=== PATIENT | female | born 1950 | race Caucasian/White ===

== ENCOUNTER → 2020-01-11 08:48 | Outpatient (CLI) | payer MEDICARE, OTHER, SELFPAY ==
[2019-12-20 13:14] VITALS: BMI 26.5
--- NOTE | 2020-01-11 08:54 | ECHOD_ITS ---
Reason For Study: ARRHYTHMIA, AO ANEURYSM Procedure This was a 2D Doppler, Color Flow transthoracic echocardiogram. The exam was of adequate technical quality. Exam performed in department. Left Ventricle Normal LV size. Left ventricular systolic function is normal. The estimated ejection fraction is 60 %. No evidence for diastolic dysfunction. No regional wall motion abnormalities noted. Right Ventricle Normal RV size. Normal systolic function. Atria Normal left atrium. Normal right atrium. No doppler evidence for ASD. Mitral Valve There is no mitral annular calcification. Normal mitral valve. Mild (1+) mitral valve insufficiency. Tricuspid Valve Normal tricuspid valve. Trivial tricuspid valve insufficiency. Right ventricular systolic pressure estimated to be 30 mmHg. Aortic Valve Trisinus/trileaflet aortic valve. Normal aortic valve. Trivial aortic valve insufficiency. Pulmonic Valve The pulmonic valve is not well visualized. Trivial pulmonic valve insufficiency. Great Vessels Borderline to mildly enlarged aortic root. Mildly dilated ascending aorta. Pericardium/Pleural No pericardial effusion. MMode/2D Measurements & Calculations LVIDd: 4.8 cm IVSd: 1.0 cm MVA(traced): 13.9 cm2 LVIDs: 3.5 cm LVPWd: 0.89 cm RVDd: 3.7 cm FS: 27.0 % Ao root diam: 4.2 cm LAV(MOD-bp): 51.8 ml LA A4 area: 15.9 cm2 LAV(MOD-bp) Indexed: 25.7 ml/m2 LAV(MOD-sp2): 53.9 ml LAV(MOD-sp4): 45.3 ml LA dimension(2D): 4.0 cm Time Measurements MV dec time: 0.17 sec Doppler Measurements & Calculations MV E max sergey: 90.4 cm/sec Lat Peak E' Sergey: 11.4 cm/sec Med Peak E' Sergey: 8.9 cm/sec MV A max sergey: 69.4 cm/sec E/E' lat: 8.0 E/E' med: 10.2 MV E/A: 1.3 Ao V2 max: 124.1 cm/sec LV V1 max: 111.2 cm/sec PA V2 max: 84.8 cm/sec Ao max P.2 mmHg LV V1 max P.9 mmHg TR max sergey: 257.6 cm/sec TR max P.6 mmHg Interpretation Summary Left ventricular systolic function is normal. The estimated ejection fraction is 60 %. Mild (1+) mitral valve insufficiency. Trivial tricuspid valve insufficiency. Trivial aortic valve insufficiency. Trivial pulmonic valve insufficiency. Borderline to mildly enlarged aortic root. Mildly dilated ascending aorta. Right ventricular systolic pressure estimated to be 30 mmHg. No evidence for diastolic dysfunction. Ordering Physician: Thiago Newman Referring Physician: Bonnie Perez Performed By: Kennedy, Nahomy, RDCS, RVT
[2020-01-11 09:32] LABS: AST(SGOT) 16 U/L (15-37); Alanine Aminotransfer ALT/SGPT 25 U/L (13-56); Albumin, Serum 3.7 g/dL (3.2-5.0); Alkaline Phosphatase 68 U/L (45-117); Bilirubin, Direct 0.13 mg/dL (0.00-0.30); Cholesterol 195 mg/dL (200); Globulin 3.6 g/dL (2.2-4.2); High Density Lipoprotein 82 mg/dL; Protein, Total 7.3 g/dL (6.4-8.2); Triglycerides 72 mg/dL; Very Low Density Lipoprotein 14 mg/dL (5-40)
== END ==
PROVIDERS: PCP Nurse Practitioner; Referring Provider Internal Medicine Cardiovascular Disease; Visit Provider Internal Medicine Cardiovascular Disease
DX: I49.1 Atrial premature depolarization (principal); I10 Essential (primary) hypertension; I71.2 Thoracic aortic aneurysm, without rupture; I45.10 Unspecified right bundle-branch block
CPT/HCPCS: 36415; 80061; 80076; 93306

== ENCOUNTER → 2020-01-18 | Outpatient (CLI) | payer MEDICARE, OTHER, SELFPAY ==
[2019-12-20 13:14] VITALS: BMI 26.5
--- NOTE | 2020-01-18 07:52 | CT_ITS ---
STUDY: CT CHEST WITH CONTRAST REASON FOR EXAM: Female, 69 years old. ENLARGED THORACIC AORTA, NO OTHER MED HX RADIATION DOSAGE (If Supplied By Facility): CTDIvol = ( 11.63 ) mGy, DLP = ( 360.98 ) mGycm TECHNIQUE: Transaxial imaging was performed following intravenous administration of IV 100mL Isovue-300. Multiplanar coronal and sagittal images were reformatted. Individualized dose optimization techniques were used for this CT. COMPARISON: None. FINDINGS: Minimally increased markings in the posterior medial segment of the left lower lobe suggestive of scarring. Minimal increased markings also seen in the lateral aspect of the lingular segment of the left upper lobe suggestive of scarring. There is no demonstrated pleural abnormality. Normal heart and pericardium. Normal mediastinum. Normal hilar regions. Normal enhanced pulmonary arteries. Mildly dilated aortic root measuring 4.1 cm in transverse dimension. There are degenerative changes of the thoracic spine. There is no demonstrated abnormality of the visualized upper abdomen. CT/Chest WITH Contrast IMPRESSION: Mild dilatation of the aortic root with a transverse dimension of 4.1 cm. Electronically Signed: Brody Alston, at 9:19 EDT , Service support ,
[2020-01-18 08:15] LABS: CREATININE FINGERSTICK 0.6 mg/dL (0.55-1.02)
== END | disposition home or self-care (01) ==
LOC: CT 07:52
PROVIDERS: PCP Nurse Practitioner; Referring Provider Internal Medicine Cardiovascular Disease; Visit Provider Internal Medicine Cardiovascular Disease
DX: I71.2 Thoracic aortic aneurysm, without rupture (principal)
CPT/HCPCS: 71260; Q9967

== ENCOUNTER → 2020-02-20 06:24 | Outpatient (CLI) | payer MEDICARE, OTHER, SELFPAY ==
[2020-02-07 15:53] VITALS: BMI 25.8
--- NOTE | 2020-02-20 08:55 | STRESSREP ---
Stress Test Report Date: 02-20-2020 Procedure: Exercise tolerance test/imaging study Indications: Chest pain; shortness of breath/dyspnea on exertion; ascending thoracic aortic aneurysm; PACs; abnormal ECG Consent: Per the patient Procedure: The patient exercised on a Anderson protocol for 7 minutes completing Stage II and 1 minute of Stage III achieving a peak heart rate of 131 bpm (87 % predicted maximal heart rate) with a peak blood pressure 160/70 mmHg and a peak MET capacity of 8 METs. The baseline ECG demonstrated sinus bradycardia. The peak exercise ECG demonstrated somatic/motion artifact with no obvious ECG changes. There was a rare PVC during exercise. The functional capacity was considered average. There was no complaint of chest discomfort during exercise or recovery. The examination was discontinued secondary to dyspnea. Impression: 1. Technically adequate (percent predicted maximal heart rate greater than 85%) exercise tolerance test 2. Peak exercise ECG with somatic/motion artifact with no obvious ECG changes 3. There was a rare PVC during exercise 4. Nuclear images pending Myocardial perfusion imaging study: Technique: The patient was injected with 11.8 mCi of technetium 99m Cardiolite and subsequently rest SPECT Cardiolite nuclear imaging was obtained in the horizontal long, vertical long, and short axis views. The patient exercised on a Anderson protocol for 7 minutes completing Stage II and 1 minute of Stage III achieving a peak heart rate of 131 bpm (87 % predicted maximal heart rate) with a peak blood pressure 160/70 mmHg and a peak MET capacity of 8 METs. The patient was injected with 33.9 mCi of technetium 99m Cardiolite and subsequently stress SPECT Cardiolite nuclear imaging was obtained in the horizontal long, vertical long, and short axis views. A gated Cardiolite study at peak stress was obtained. Interpretation: Rest and stress SPECT Cardiolite nuclear imaging status post realignment, normalization, and attenuation correction, demonstrates the appearance of relative uniform tracer uptake and myocardial perfusion appearing within normal limits. There is end systolic thickening and brightening. The gated Cardiolite study demonstrates myocardial thickening and inward wall motion. The reported LVEF is 69 %. Impression: 1. Rest and stress SPECT Cardiolite nuclear imaging demonstrate relative uniform tracer uptake and myocardial perfusion appearing within normal limits. 2. The gated Cardiolite study reports an LVEF of 69 %. This note was generated with [employer] software. It may contain incorrect words, spelling, and punctuation that were not noted in checking the note before signing.
== END ==
PROVIDERS: PCP Nurse Practitioner; Referring Provider Internal Medicine Cardiovascular Disease; Visit Provider Internal Medicine Cardiovascular Disease
DX: R07.9 Chest pain, unspecified (principal); I71.2 Thoracic aortic aneurysm, without rupture; I49.1 Atrial premature depolarization; I10 Essential (primary) hypertension
CPT/HCPCS: 78452; 93017; A9500; A4216

== ENCOUNTER → 2021-03-12 10:19 | Outpatient (CLI) | payer MEDICARE, OTHER, SELFPAY ==
[2021-02-26 10:50] VITALS: BMI 25.5
--- NOTE | 2021-03-12 10:31 | ECHOD_ITS ---
Reason For Study: Ascending Ao Aneurysm Procedure This was a 2D Doppler, Color Flow transthoracic echocardiogram. The study was technically difficult. Exam performed in department. Left Ventricle Normal LV size. Left ventricular systolic function is normal. The estimated ejection fraction is 65 %. No evidence for diastolic dysfunction. No regional wall motion abnormalities noted. Right Ventricle Normal RV size. Normal systolic function. Atria The left atrium is mildly enlarged. Normal right atrium. No doppler evidence for ASD. Mitral Valve There is no mitral annular calcification. Normal mitral valve. Trivial mitral valve insufficiency. Tricuspid Valve Normal tricuspid valve. Mild tricuspid valve insufficiency. Right ventricular systolic pressure estimated to be 28 mmHg. Aortic Valve Trisinus/trileaflet aortic valve. Normal aortic valve. Trivial aortic valve insufficiency. Pulmonic Valve The pulmonic valve is not well visualized. Trivial pulmonic valve insufficiency. Great Vessels Mildly dilated aortic root. Pericardium/Pleural No pericardial effusion. MMode/2D Measurements & Calculations LVIDd: 5.2 cm IVSd: 1.3 cm Ao root diam: 4.2 cm LVIDs: 3.3 cm LVPWd: 0.99 cm RVDd: 3.5 cm FS: 37.1 % LAV(MOD-bp): 40.7 ml LVAd ap4: 21.6 cm2 SV(MOD-sp4): 30.8 ml LAV(MOD-bp) Indexed: 20.4 ml/m2 LVLd ap4: 7.0 cm LAV(MOD-sp2): 47.6 ml EDV(MOD-sp4): 54.2 ml LAV(MOD-sp4): 33.9 ml EDV(sp4-el): 56.3 ml LVAs ap4: 12.8 cm2 LVLs ap4: 6.3 cm ESV(MOD-sp4): 23.4 ml ESV(sp4-el): 22.0 ml EF(MOD-sp4): 56.9 % EF(sp4-el): 60.8 % SV(sp4-el): 34.2 ml LA A4 area: 14.7 cm2 LA dimension(2D): 3.9 cm RA A4 area: 10.2 cm2 Doppler Measurements & Calculations MV E max sergey: 47.9 cm/sec Lat Peak E' Sergey: 7.7 cm/sec Med Peak E' Sergey: 6.7 cm/sec MV A max sergey: 66.1 cm/sec E/E' lat: 6.2 E/E' med: 7.1 MV E/A: 0.73 Ao V2 max: 135.9 cm/sec LV V1 max: 111.0 cm/sec PA V2 max: 82.8 cm/sec Ao max P.4 mmHg LV V1 max P.9 mmHg Ao V2 mean: 97.4 cm/sec Ao mean P.1 mmHg Ao V2 VTI: 30.1 cm TR max sergey: 249.5 cm/sec TR max P.9 mmHg ECHO/Echo Complete Interpretation Summary The study was technically difficult. Left ventricular systolic function is normal. The estimated ejection fraction is 65 %. The left atrium is mildly enlarged. Trivial mitral valve insufficiency. Mild tricuspid valve insufficiency. Trivial aortic valve insufficiency. Trivial pulmonic valve insufficiency. Mildly dilated aortic root. Right ventricular systolic pressure estimated to be 28 mmHg. No evidence for diastolic dysfunction. Ordering Physician: Thiago Newman Referring Physician: Bonnie Perez Performed By: Vibha Malin, KAYLA, RVT
[2021-03-12 12:05] LABS: AST(SGOT) 16 U/L (15-37); Alanine Aminotransfer ALT/SGPT 27 U/L (13-56); Albumin, Serum 4.1 g/dL (3.2-5.0); Alkaline Phosphatase 72 U/L (45-117); Bilirubin, Direct 0.11 mg/dL (0.00-0.30); Cholesterol 193 mg/dL (200); Globulin 3.3 g/dL (2.2-4.2); High Density Lipoprotein 80 mg/dL; Protein, Total 7.4 g/dL (6.4-8.2); Triglycerides 70 mg/dL; Very Low Density Lipoprotein 14 mg/dL (5-40)
== END ==
PROVIDERS: PCP Nurse Practitioner; Referring Provider Internal Medicine Cardiovascular Disease; Visit Provider Internal Medicine Cardiovascular Disease
DX: E78.00 Pure hypercholesterolemia, unspecified (principal); I10 Essential (primary) hypertension; I71.2 Thoracic aortic aneurysm, without rupture
CPT/HCPCS: 36415; 80061; 80076; 93306

== ENCOUNTER 2021-06-05 22:35 | Emergency (ER) | payer MEDICARE, OTHER, SELFPAY ==
[2021-06-05 22:37] VITALS: BP 148/98; PULSE 94; RESP 16; TEMP 37.2; O2SAT 98; BMI 25.7
--- NOTE | 2021-06-05 23:17 | ED.VIS.DYS ---
HPI History of Present Illness Chief Complaint: Shortness of Breath Narrative Narrative: 71-year-old female presents for evaluation because she has COVID-19. She is on day 11. Patient started having symptoms on the . Patient states that she has been doing pretty well. Her highest fever is of 100.5. She has not had a return of her fever in many days. She has a little bit of shortness of breath with exertion but has been checking her pulse ox at home and she has not had a low pulse ox. She is not having chest pain. Patient states that earlier this morning she was seen by her primary care physician's nurse practitioner who prescribed her dexamethasone, doxycycline, albuterol inhaler, Phenergan and sent her for chest x-ray. Patient states she was home and was told to come to the emergency room because the patient had bilateral pneumonia. The patient's daughter is with her and she states that she has been drinking well and she is actually encouraging her to drink more. She has been buying her ensures and she is drinking these. She is having bowel movements. She is making normal urine. Her biggest complaint is that she has GERD-like symptoms. She is not on anything for this. [facility] Medical History Ascending aortic aneurysm Essential hypertension GERD (gastroesophageal reflux disease) History of DVT (deep vein thrombosis) Hypertension Premature atrial contractions Pulmonary embolism Pulmonary hypertension, secondary RBBB (right bundle branch block) Home Medications cholecalciferol (vitamin D3) 125 mcg (5,000 unit) capsule 5,000 unit PO QDAY 11/01/17 [History Last Taken Unknown] turmeric root extract 500 mg capsule 500 mg PO DAILY 12/12/18 [History Last Taken Unknown] diltiazem HCl 120 mg capsule,extended release 24 hr 120 mg PO DAILY #90 cap 12/11/20 [Rx Last Taken Unknown] biotin 1,000 mcg chewable tablet 1,000 mcg PO DAILY PRN 02/26/21 [History Last Taken Unknown] cetirizine 10 mg tablet 10 mg PO QDAY PRN tab 02/26/21 [History Last Taken Unknown] naproxen sodium 220 mg capsule 220 mg PO BID PRN 02/26/21 [History Last Taken Unknown] albuterol sulfate 90 mcg/actuation aerosol inhaler 2 puff INHALATION Q4H PRN #6.7 g 06/05/21 [Rx Last Taken Unknown] dexamethasone 6 mg tablet 6 mg PO BID #20 tab 06/05/21 [Rx Last Taken Unknown] doxycycline hyclate 100 mg capsule 100 mg PO BID #20 cap 06/05/21 [Rx Last Taken Unknown] promethazine 12.5 mg tablet 12.5 mg PO Q4H PRN #60 tab 06/05/21 [Rx Last Taken Unknown] Allergy/AdvReac Type Severity Reaction Status Date / Time acetaminophen [From Percocet] AdvReac Severe headache Verified 06/05/21 22:37 oxycodone [From Percocet] AdvReac Severe headache Verified 06/05/21 22:37 Family History Father CAD (coronary artery disease) Mother CAD (coronary artery disease) TIA (transient ischemic attack) Sister Hypertension Sister Hypertension Brother Hypertension Surgical History History of arthroplasty of right hip History of elbow surgery Status post wrist surgery Social History Smoking Status: Never smoker alcohol intake: never substance use type: does not use ROS ROS ED Constitutional Constitutional ED: Denies chills or fever(s) Eyes Eyes: Denies blurry vision or diplopia ENT ENT ED: Denies rhinorrhea or sore throat Cardiovascular Cardiovascular: Denies chest pain or palpitations Respiratory/Chest Respiratory/Chest: Reports cough and dyspnea Gastrointestinal Gastrointestinal: Reports nausea; Denies constipation, diarrhea or vomiting Genitourinary Genitourinary ED: Denies dysuria or hematuria Musculoskeletal Musculoskeletal: Denies arthralgias or myalgias Integumentary Denies Abrasions or rash Neurologic Neurologic: Denies headache(s) or paresthesias EXAM Physical Exam Const Vital Signs: 06/05/21 22:37 Temperature 99 F Temperature Source Temporal Pulse Rate 94 Respiratory Rate 16 Blood Pressure 148/98 H Blood Pressure Mean 114 Pulse Ox 98 Oxygen Delivery Method Room Air Positive well nourished General Appearance ED: NAD; Negative for pallor HEENT Reports normocephalic, head/scalp atraumatic and moist mucous membranes atraumatic Eyes PERRL and EOMs intact bilaterally Neck no lymphadenopathy and supple Chest Wall inspection of chest normal and palpation of chest normal Resp normal respiratory effort and clear to auscultation bilaterally Auscultation: rales right base and left base; Negative for rhonchi or wheezes Cardio regular rate and regular rhythm GI normal to inspection, nondistended, normoactive bowel sounds and non-distended Auscultation: normoactive bowel sounds Palpation: soft Narrative: Deferred Back/Spine Cervical Spine: Negative for cervical spine tenderness Extremity normal to inspection General Extremety ED: Yes edema and tenderness General Extremity: edema Neuro oriented x3, CN's II-XII intact bilaterally and no sensory deficits noted Sensorium / Orientation: alert Motor Exam: strength 5/5 throughout Psych mental status grossly normal Attitude: No agitated Skin no rashes or lesions noted and no wounds General Skin Exam: Negative for jaundice or pallor MDM MDM MDM Narrative Medical decision making narrative: This is a well-appearing 71-year-old female who states that she feels otherwise well. She is actually recovering from COVID-19 fairly well. She does have some acid reflux symptoms but other than this she has been able to eat and drink well. She is making urine and stool. She has resolution of her fevers. She states she only came to the ER because she was told to come to the ED because of her chest x-ray. Her pulse ox is 98% on room air. She is afebrile. Respirate 16. Heart rate is 94. On examination she does have bibasilar crackles. Otherwise her physical exam is unremarkable. After long discussion I counseled the patient that taking the dexamethasone and doxycycline might actually cause more GI upset and she is actually doing very well from my perspective. I offered her an incentive spirometer but she says she has one will do one. Her daughter is encourage her to get up and walk and she is making sure is eating and drinking normally. She is not falling or generally weak. I feel the patient is safe for discharge home at this time. I do not believe she needs lab work or imaging. I discussed with her and her daughter at length that if they have any new or worsening symptoms such as return of fever, hypoxia, severe chest pain, difficulty eating and drinking to come back to the emergency room for repeat evaluation. They were amenable to this plan and discharged home in stable condition. Impression: 1. COVID-19 pneumonitis Discharge Plan Triage Chief Complaint: Shortness of Breath ED Provider: Rudolph Tavarez Dx/Rx/DC Orders Instructions: Coronavirus Disease 2019 (COVID-19): Caring for Yourself or Others Prescriptions: No Action cholecalciferol (vitamin D3) 5,000 unit capsule 5,000 unit PO QDAY RF: 0 cetirizine [Zyrtec] 10 mg tablet 10 mg PO QDAY PRNRF: 0 turmeric root extract 500 mg capsule 500 mg PO DAILY RF: 0 biotin 1,000 mcg tablet,chewable 1,000 mcg PO DAILY PRNRF: 0 naproxen sodium [Aleve] 220 mg capsule 220 mg PO BID PRNRF: 0 promethazine 12.5 mg tablet 12.5 mg PO Q4H PRN (Reason: nausea and vomiting) Qty: 60 RF: 0 dexamethasone [Decadron] 6 mg tablet 6 mg PO BID Qty: 20 RF: 0 albuterol sulfate [Ventolin HFA] 90 mcg/actuation HFA aerosol inhaler 2 puff inhalation Q4H PRN (Reason: asthma) Qty: 6.7 RF: 12 doxycycline hyclate 100 mg capsule 100 mg PO BID Qty: 20 RF: 0 diltiazem HCl [Cartia XT] 120 mg capsule,extended release 24hr 120 mg PO DAILY Qty: 90 RF: 3 Primary Care Provider: Bonnie Perez NP Referrals: Bonnie Perez NP, [employer] EXECUTIVE[employer] [Primary Care Provider] - Disposition Disposition: Home, Self Care
== END 2021-06-05 23:28 | disposition home or self-care (01) ==
LOC: ED 23:25
PROVIDERS: Emergency Provider Student in an Organized Health Care Education/Training Program; PCP Nurse Practitioner
DX: U07.1 COVID-19 (principal); J12.82 Pneumonia due to coronavirus disease 2019; I71.2 Thoracic aortic aneurysm, without rupture; I10 Essential (primary) hypertension; K21.9 Gastro-esophageal reflux disease without esophagitis; Z86.718 Personal history of other venous thrombosis and embolism; I27.20 Pulmonary hypertension, unspecified; Z79.52 Long term (current) use of systemic steroids
CPT/HCPCS: 99282

== ENCOUNTER 2021-11-10 11:49 | Outpatient (CLI) | payer MEDICARE, OTHER, SELFPAY ==
--- NOTE | 2021-11-10 11:55 | RAD_ITS ---
INDICATION: pre-operative EXAMINATION/TECHNIQUE: X-RAY - XR Chest 2 Views COMPARISON: None. FINDINGS: LUNGS: No consolidation. No pneumothorax. MEDIASTINUM: Aorta is tortuous and atherosclerotic. CARDIAC SILHOUETTE: Not enlarged. BONES AND SOFT TISSUES: No acute abnormalities. Degenerative changes dorsal spine and mild curvature. IMPRESSION: No evidence of active intrathoracic disease. Electronically Signed: Nereida Schaefer MD at 4:52 EDT , RAD/Chest PA and Lateral
[2021-11-10 12:45] LABS: Absolute Neutrophil Count 5.7 X10^3/uL (2.0-7.7); Basophil# 0.05 X10^3/uL; Basophil% 0.6 % (0-1); Eosinophil# 0.08 X10^3/uL; Hematocrit 43.7 % (37-47); Hemoglobin 14.3 g/dL (12.0-15.0); Mean Corp Hgb Conc 32.7 g/dL (32-36); Mean Corpuscular Hgb 30.7 pg (27.0-32.0); Mean Corpuscular Volume 93.8 fL (81-99); Monocyte# 0.53 X10^3/uL; Monocyte% 6.8 % (0-10); NRBC Flagged by Analyzer 0 % (0-5); Neutrophil % 73.3 % (47-70); Platelet Count 278 K/mm3 (150-450); RBC Distribution Width CV 13.1 % (11.6-14.6); RBC Distribution Width SD 44.7 fl (35.1-43.9); Red Blood Count 4.66 M/mm3 (4.2-5.4); White Blood Count 7.8 K/mm3 (4.4-11.0)
[2021-11-10 13:01] LABS: Prothrombin Time (Protime)PT. 12.2 SECONDS (11.7-14.9)
[2021-11-10 13:28] LABS: Anion Gap 6 (5-15); BUN 19 mg/dL (7-18); BUN/Creat Ratio 29.3 RATIO (10-20); Calcium,Total 9.2 mg/dL (8.5-10.1); Chloride 107 mmol/L (98-107); Creatinine, Serum 0.65 mg/dL (0.55-1.02); EST Glomerular Filtration Rate 95 mL/min (>60); Est Glom Filt Rate - Afr Amer 115 mL/min (>60); Glucose 99 mg/dL (74-106); Sodium Level 140 mmol/L (136-145)
[2021-11-10 13:36] LABS: Hemoglobin A1c 5.3 % (3.8-5.6)
== END 2021-11-10 23:59 | disposition home or self-care (01) ==
PROVIDERS: PCP Nurse Practitioner; Referring Provider Nurse Practitioner Family; Visit Provider Nurse Practitioner Family
DX: Z01.810 Encounter for preprocedural cardiovascular examination (principal); I71.2 Thoracic aortic aneurysm, without rupture; E11.9 Type 2 diabetes mellitus without complications; R06.02 Shortness of breath; I45.10 Unspecified right bundle-branch block
CPT/HCPCS: 36415; 71046; 80048; 83036; 85025; 85610; 85730

== ENCOUNTER → 2022-02-26 | Outpatient (CLI) | payer MEDICARE, OTHER, SELFPAY ==
--- NOTE | 2022-02-26 13:43 | CT_ITS ---
STUDY: CTA CHEST REASON FOR EXAM: Female, 71 years old. Ascending aortic aneurysm RADIATION DOSAGE (If Supplied By Facility): CTDIvol = ( 6.84 ) mGy, DLP = ( 230.53 ) mGycm TECHNIQUE: The examination was performed with the intravenous administration of IV 100mL Isovue-370. Post-processing of the angiographic images was performed, with multiplanar reformation and 3D reconstruction. Individualized dose optimization techniques were used for this CT. COMPARISON: Comparison is made with prior examination dated 01/18/2020. FINDINGS: Normal enhancement of the main pulmonary artery and right and left pulmonary arteries. Normal enhancement of the bilateral peripheral pulmonary arteries. There is no demonstrated pulmonary embolism. There is aneurysmal dilatation of the ascending aorta. The transverse diameter of the ascending aorta measures 42 mm''s. Scattered calcific plaque at the level of the aortic arch There is no demonstrated aortic dissection. Normal heart and pericardium. Normal mediastinum. Normal hilar regions. Normal visualized trachea and bronchi. The lungs are well expanded. Normal pulmonary parenchyma. Normal pleura. Normal chest wall structures. There are degenerative changes of thoracic spine. Normal visualized upper abdomen. CT/CTA Chest W/WO Contrast IMPRESSION: Dilatation of the ascending thoracic aorta with a transverse dimension of 42 mm. Electronically Signed: Brody Alston MD at 14:57 EDT ,
[2022-02-26 14:20] LABS: CREATININE FINGERSTICK < 0.9 mg/dL (0.55-1.02); EGFR FINGERSTICK > 60.0000 mL/min (>60)
== END | disposition home or self-care (01) ==
LOC: CT 13:42
PROVIDERS: PCP Nurse Practitioner; Referring Provider Internal Medicine Cardiovascular Disease; Visit Provider Internal Medicine Cardiovascular Disease
DX: I71.2 Thoracic aortic aneurysm, without rupture (principal)
CPT/HCPCS: 71275; Q9967

== ENCOUNTER → 2023-07-22 | Outpatient (CLI) | payer MEDICARE, OTHER, SELFPAY ==
[2023-07-22 21:29] LABS: Absolute Lymphocyte Count 1.97 X10^3/uL (0.83-4.51); Absolute Neutrophil Count 4.8 X10^3/uL (2.0-7.7); Basophil# 0.07 X10^3/uL; Basophil% 0.9 % (0-1); Eosinophil# 0.09 X10^3/uL; Eosinophils% 1.2 % (0-5); Hematocrit 44.6 % (37-47); Hemoglobin 13.8 g/dL (12.0-15.0); Lymphocyte # 1.97 X10^3/ul (0.83-4.51); Lymphocyte % 25.6 % (19-41); Mean Corp Hgb Conc 30.9 g/dL (32-36); Mean Corpuscular Hgb 30.3 pg (27.0-32.0); Mean Corpuscular Volume 97.8 fL (81-99); Mean Platelet Vol. 11.4 fl (6.2-12.0); Monocyte% 10.4 % (0-10); NRBC Flagged by Analyzer 0 % (0-5); Neutrophil # 4.77 X10^3/uL (2.7-7.7); Neutrophil % 61.8 % (47-70); Platelet Count 279 K/mm3 (150-450); RBC Distribution Width CV 13.2 % (11.6-14.6); RBC Distribution Width SD 47.2 fl (35.1-43.9); Red Blood Count 4.56 M/mm3 (4.2-5.4); White Blood Count 7.7 K/mm3 (4.4-11.0)
[2023-07-22 21:51] LABS: ALB/GLOB Ratio 1.1 RATIO (0.9-2.4); AST(SGOT) 17 U/L (15-37); Alanine Aminotransfer ALT/SGPT 24 U/L (13-56); Albumin, Serum 3.7 g/dL (3.2-5.0); Alkaline Phosphatase 75 U/L (45-117); Anion Gap 5 (5-15); BUN 15 mg/dL (7-18); BUN/Creat Ratio 23.8 RATIO (10-20); Calcium,Total 9.2 mg/dL (8.5-10.1); Chloride 109 mmol/L (98-107); Cholesterol 196 mg/dL (200); Creatinine, Serum 0.63 mg/dL (0.55-1.02); EST Glomerular Filtration Rate 98 mL/min (>60); Est Glom Filt Rate - Afr Amer 119 mL/min (>60); Globulin 3.5 g/dL (2.2-4.2); Glucose 84 mg/dL (74-106); High Density Lipoprotein 74 mg/dL; Potassium 3.8 mmol/L (3.5-5.1); Protein, Total 7.2 g/dL (6.4-8.2); Sodium Level 143 mmol/L (136-145); Triglycerides 157 mg/dL; Very Low Density Lipoprotein 31 mg/dL (5-40)
== END | disposition home or self-care (01) ==
PROVIDERS: PCP Nurse Practitioner; Visit Provider Nurse Practitioner
DX: I10 Essential (primary) hypertension (principal)
CPT/HCPCS: 80053; 80061; 85025

== ENCOUNTER → 2024-02-01 | Outpatient (CLI) | payer MEDICARE, OTHER, SELFPAY ==
[2024-02-01 22:12] LABS: Thyroid Stim Hormone (TSH) 2.01 uIU/mL (0.358-3.74)
== END | disposition home or self-care (01) ==
PROVIDERS: PCP Nurse Practitioner; Visit Provider Nurse Practitioner
DX: R13.10 Dysphagia, unspecified (principal)
CPT/HCPCS: 84443

== ENCOUNTER → 2024-02-18 | Outpatient (CLI) | payer MEDICARE, OTHER, SELFPAY ==
--- NOTE | 2024-02-18 11:45 | US_ITS ---
STUDY: THYROID ULTRASOUND REASON FOR EXAM: Female, 73 years old. lump on L side of the neck TECHNIQUE: Ultrasound evaluation of the thyroid was performed with real-time and static emerson-scale imaging. COMPARISON: None. FINDINGS: RIGHT LOBE: The right lobe of the thyroid gland measures 4.7 x 1.3 x 1.2 cm. There is a homogeneous echotexture. There are no demonstrated solid, cystic or complex lesions. LEFT LOBE: The left lobe of the thyroid gland measures 4.3 x 1.7 x 1.0 cm. There is a homogeneous echotexture. There are no demonstrated solid, cystic or complex lesions. ISTHMUS: The isthmus measures 2 mm thick. . The regional lymph nodes are normal. US/Thyroid IMPRESSION: Normal ultrasound examination of the thyroid. Electronically Signed: Onel Benton MD at 12:58 EDT ,
== END | disposition home or self-care (01) ==
LOC: US 11:40
PROVIDERS: PCP Nurse Practitioner; Referring Provider Nurse Practitioner; Visit Provider Nurse Practitioner
DX: R09.A2 Foreign body sensation, throat (principal); R13.10 Dysphagia, unspecified
CPT/HCPCS: 76536

== ENCOUNTER 2024-03-21 09:00 | Outpatient (CLI) | payer MEDICARE, OTHER, SELFPAY ==
--- NOTE | 2024-03-23 12:04 | EKG12_ITS ---
Test Reason : PRE OP Blood Pressure : / mmHG Vent. Rate : 065 BPM Atrial Rate : 065 BPM P-R Int : 184 ms QRS Dur : 088 ms QT Int : 424 ms P-R-T Axes : 034 -15 042 degrees QTc Int : 440 ms Normal sinus rhythm Normal ECG Confirmed by Bayron Pop ([id number]), school photograph editor VIANNEY BAUTISTA ([id number]) on 03/27/2024 9:56:57 AM Referred By: Ajith Samayoa Confirmed By:Bayron Pop
[2024-03-23 12:43] LABS: Hematocrit 42.6 % (37-47); Hemoglobin 13.5 g/dL (12.0-15.0); Mean Corp Hgb Conc 31.7 g/dL (32-36); Mean Corpuscular Volume 94.7 fL (81-99); Mean Platelet Vol. 10.9 fl (6.2-12.0); Platelet Count 279 K/mm3 (150-450); RBC Distribution Width CV 12.8 % (11.6-14.6); RBC Distribution Width SD 44.1 fl (35.1-43.9); White Blood Count 6.5 K/mm3 (4.4-11.0)
[2024-03-23 13:03] LABS: Anion Gap 5 (5-15); BUN 16 mg/dL (7-18); BUN/Creat Ratio 26.6 RATIO (10-20); Calcium,Total 9.2 mg/dL (8.5-10.1); Chloride 106 mmol/L (98-107); EST Glomerular Filtration Rate 103 mL/min (>60); Est Glom Filt Rate - Afr Amer 125 mL/min (>60); Glucose 90 mg/dL (74-106); Sodium Level 138 mmol/L (136-145)
== END 2024-03-21 23:00 | disposition home or self-care (01) ==
LOC: SDC 10-11 21:25
PROVIDERS: PCP Nurse Practitioner; Referring Provider Otolaryngology; Visit Provider Otolaryngology
DX: Z01.810 Encounter for preprocedural cardiovascular examination (principal); Z01.818 Encounter for other preprocedural examination; Z53.9 Procedure and treatment not carried out, unspecified reason
CPT/HCPCS: 36415; 80048; 85027; 93005

== ENCOUNTER → 2024-03-23 | Outpatient (CLI) | payer MEDICARE, OTHER, SELFPAY ==
--- NOTE | 2024-03-23 14:15 | VDLE_ITS ---
Reason For Study: Calf Pain RIGHT LEFT GSV is normal. GSV is normal. CFV is compressible, spontaneous, phasic, CFV is compressible, spontaneous, phasic, competent and demonstrates normal competent, and demonstrates normal augmentation. augmentation. FV is compressible, spontaneous, phasic, FV is compressible, spontaneous, phasic, competent and demonstrates normal competent and demonstrates normal augmentation. augmentation. POP V is compressible, spontaneous, and POP V is compressible, spontaneous, phasic, phasic. competent and demonstrates normal Acute deep vein thrombosis is noted in the augmentation. T/P Trunk. It is dilated and NONCOMPRESSIBLE. T/P Trunk is compressible. PTV is compressible. PTV is compressible. RT PerV is compressible. LT PerV is compressible. Anechoic non-vascularized area measuring approximately 3.71cm x 1.53cm noted in Rt Pop Fossa. Procedure This is a venous duplex using B-mode, color flow and spectral Doppler. Exam performed in department. The exam was diagnostic. A preliminary report was called and/or faxed to Dr. Samayoa's office. VL/Venous Duplex US - Richi Extrem Interpretation Summary Acute deep vein thrombosis is noted in the right tibio-peroneal trunk. Deep veins of the left lower extremity are patent and compressible segmentally. There is no evidence of left lower extremity deep vein thrombosis. The bilateral great saphenous vei ns appear patent and compressible segmentally. Anechoic non-vascularized area measuring approximately 3.71cm x 1.53cm noted in right popliteal fossa. Ordering Physician: Ajith Samayoa Referring Physician: Bonnie Perez Performed By: Brody Nation, RVT
== END | disposition home or self-care (01) ==
PROVIDERS: PCP Nurse Practitioner; Referring Provider Otolaryngology; Visit Provider Otolaryngology
DX: M79.669 Pain in unspecified lower leg (principal); Z86.711 Personal history of pulmonary embolism
CPT/HCPCS: 93970

== ENCOUNTER → 2024-05-15 | Outpatient (CLI) | payer MEDICARE, OTHER, SELFPAY ==
--- NOTE | 2024-05-15 12:59 | VDLE_ITS ---
Reason For Study: HX RLE DVT RIGHT LEFT GSV is normal. CFV is compressible, spontaneous, phasic, CFV is compressible, spontaneous, phasic, competent, and demonstrates normal competent and demonstrates normal augmentation. augmentation. FV is compressible, spontaneous, phasic, competent and demonstrates normal augmentation. POP V is compressible, spontaneous, phasic, competent and demonstrates normal augmentation. T/P Trunk is PARTIALLY COMPRESSIBLE with intraluminal echogenicity. Flow is visualized with color doppler throughout vessel. PTV is compressible. RT PerV is compressible. Procedure This is a venous duplex using B-mode, color flow and spectral Doppler. Exam performed in department. The exam was diagnostic. Compare to study on 03/23/2024. VL/Venous Duplex US, Unilateral Interpretation Summary Chronic deep vein thrombosis is noted in the right tibio-peroneal trunk. Ordering Physician: Guillermo Warren Referring Physician: Bonine Perez Performed By: Brody Nation, RVT
== END | disposition home or self-care (01) ==
LOC: CVS 12:59
PROVIDERS: PCP Nurse Practitioner; Referring Provider Surgery Trauma Surgery; Visit Provider Surgery Trauma Surgery
DX: I82.461 Acute embolism and thrombosis of right calf muscular vein (principal)
CPT/HCPCS: 93971

== ENCOUNTER → 2024-06-01 | Outpatient (CLI) | payer MEDICARE, OTHER, SELFPAY ==
[2024-06-01 14:59] LABS: Absolute Lymphocyte Count 2.22 X10^3/uL (0.83-4.51); Absolute Neutrophil Count 3.7 X10^3/uL (2.0-7.7); Basophil# 0.06 X10^3/uL; Basophil% 0.9 % (0-1); Eosinophil# 0.14 X10^3/uL; Hematocrit 43.1 % (37-47); Hemoglobin 13.8 g/dL (12.0-15.0); Lymphocyte # 2.22 X10^3/ul (0.83-4.51); Lymphocyte % 32.5 % (19-41); Mean Corpuscular Hgb 29.6 pg (27.0-32.0); Mean Corpuscular Volume 92.3 fL (81-99); Mean Platelet Vol. 11.1 fl (6.2-12.0); Monocyte# 0.73 X10^3/uL; Monocyte% 10.7 % (0-10); NRBC Flagged by Analyzer 0 % (0-5); Neutrophil # 3.66 X10^3/uL (2.7-7.7); Neutrophil % 53.5 % (47-70); Platelet Count 283 K/mm3 (150-450); RBC Distribution Width CV 13.3 % (11.6-14.6); RBC Distribution Width SD 45.3 fl (35.1-43.9); Red Blood Count 4.67 M/mm3 (4.2-5.4); White Blood Count 6.8 K/mm3 (4.4-11.0)
[2024-06-01 15:29] LABS: ALB/GLOB Ratio 1.1 RATIO (0.9-2.4); AST(SGOT) 17 U/L (15-37); Alanine Aminotransfer ALT/SGPT 25 U/L (13-56); Albumin, Serum 3.6 g/dL (3.2-5.0); Alkaline Phosphatase 77 U/L (45-117); Anion Gap 4 (5-15); BUN 16 mg/dL (7-18); BUN/Creat Ratio 26.3 RATIO (10-20); Calcium,Total 9.5 mg/dL (8.5-10.1); Chloride 108 mmol/L (98-107); Creatinine, Serum 0.61 mg/dL (0.55-1.02); EST Glomerular Filtration Rate 102 mL/min (>60); Est Glom Filt Rate - Afr Amer 123 mL/min (>60); Globulin 3.3 g/dL (2.2-4.2); Glucose 89 mg/dL (74-106); Potassium 3.9 mmol/L (3.5-5.1); Protein, Total 6.9 g/dL (6.4-8.2); Sodium Level 138 mmol/L (136-145)
== END | disposition home or self-care (01) ==
LOC: LAB 14:02
PROVIDERS: PCP Nurse Practitioner; Referring Provider Internal Medicine Cardiovascular Disease; Visit Provider Internal Medicine Cardiovascular Disease
DX: I71.20 Thoracic aortic aneurysm, without rupture, unspecified (principal); I10 Essential (primary) hypertension; R06.02 Shortness of breath
CPT/HCPCS: 36415; 80053; 85025

== ENCOUNTER → 2024-06-19 | Outpatient (CLI) | payer MEDICARE, OTHER, SELFPAY | END | disposition home or self-care (01) | LOC: CVS 12:45 | PROVIDERS: PCP Nurse Practitioner; Referring Provider Surgery Trauma Surgery; Visit Provider Surgery Trauma Surgery | DX: M79.89 Other specified soft tissue disorders (principal) | CPT/HCPCS: 93971 ==

== ENCOUNTER 2024-07-10 07:17 | Day surgery (SDC) | payer MEDICARE, OTHER, SELFPAY ==
[2024-07-10] VITALS (8 sets, daily range): BP systolic 131–149; BP diastolic 74–82; PULSE 65–77; RESP 16–18; TEMP 36.2–36.8; O2SAT 91–97; BMI 28.1
--- NOTE | 2024-07-10 | IMM_PTH ---
PATIENT: JOSE G DENNEY [place] [facility] [id number] AGE/SX: 74/F ROOM: RE07/10/[address]: Dr. Ajith Samayoa MD : 1950 BED: DIS: 07/10/2024 SPEC #: [id number] RECD: 07/11/24 11:12 STATUS: CRISTINO REQ #: [id number] JE: 07/10/24 00:[address]: Ajith Samayoa DEPT: IMMUNOHISTOCHEMISTRY RECD BY: Agustin Turner ENTERED: 07/11/24 11:13 SP TYPE: IMMUNO OTHR DR: Bonnie Perez, ROUGHER MACHINE OPERATOR-C Tissues: Laryngeal cavity Procedures: BCL-2 (add) CD20 (add) CD3 (add) CD45 (add) CD5 (add) CD79A (add) KI-67 (add) P53 (add) Pankeratin (initial) CD68 (ADD) PHYSICIAN & INSTITUTION [address] [address] SPECIMEN INFORMATION: Tissue Source: Laryngeal mass Clinical Info: Hoarseness, benign neoplasm of larynx Specimen Number: [id number] CPT code: 68811,[id number] METHODOLOGY: Deparaffinized sections of prefer/formalin-fixed tissue or PAP/DQ stained slides are incubated with monoclonal/polyclonal antibodies/oligonucleotide probes. Localization is made via biotin free immunoperoxidase method. Appropriate controls are performed and reacted as expected. Results on target cell population are indicated in the following table: RESULTS: ANTIBODY / CLONE RESULT AE1-3 (AE1/AE3/PCK26) negative CD3 (PS1) positive CD5 (SP10) positive CD20 (L26) positive CD45 (RP2/18) positive CD79a (11E3) positive BCL-2 (bcl-2/100/D5) positive, zonal CD68 (KP-1) positive, focal P53 (DO-7) negative, null pattern Ki-67 (30-9) positive, zonal These tests were developed and their performance characteristics determined by [facility]. They may not have been cleared or approved by the U.S. Food and Drug Administration. The FDA has determined that such clearance or approval is not necessary. The above immunohistochemical/dualISH markers are ordered and reviewed by the Pathologist. INTERPRETATION: Laryngeal mass, excision: Polytypic (benign) lymphoid tissue. AMGabrielle 07/12/2024
[2024-07-10] MEDS: Lactated Ringers 1,000 ML 15 ML IV (07:54)
--- NOTE | 2024-07-10 08:04 | PCM.PRE.AN2 ---
ASA Classification* ASA Classification ASA Classification: 3 Assessment & Plan Anesthesia* Anesthesia Assessment Anesthesia Assessment: Discussed sedation and/or anesthesia options, risks, benefits, and alternatives with patient/parents/legal guardian/POA. Questions invited. The patient/parents/legal guardian/POA seems to understand and agrees to proceed with anesthesia plan. Reviewed the physical assessment, medical history, allergy history and patient home medications list prior to surgery/procedure/anesthetic and documented any changes. Performed airway and anesthesia risk assessments. Anesthesia Type Anesthesia Type: General Anesthesia Focused Assessment* Temperature: 98.3 F Pulse Rate: 77 Blood Pressure: 134/77 Respiratory Rate: 16 Pulse Ox: 97 Airway Assessment Mouth opens: >3 cm Mallampati Score: II Focused Labs Anesthesia Preop lab: CBC WBC 6.8 K/mm3 (4.4-11.0) 06/01/24 14:20 RBC 4.67 M/mm3 (4.2-5.4) 06/01/24 14:20 Hgb 13.8 g/dL (12.0-15.0) 06/01/24 14:20 Hct 43.1 % (37-47) 06/01/24 14:20 Plt Count 283 K/mm3 (150-450) 06/01/24 14:20 CHEMISTRY Potassium 3.9 mmol/L (3.5-5.1) 06/01/24 14:20 Sodium 138 mmol/L (136-145) 06/01/24 14:20 BUN 16 mg/dL (7-18) 06/01/24 14:20 Creatinine 0.61 mg/dL (0.55-1.02) 06/01/24 14:20 Glucose 89 mg/dL (74-106) 06/01/24 14:20 TSH 2.01 uIU/mL (0.358-3.74) 02/01/24 15:44 COAG PT 12.2 SECONDS (11.7-14.9) 11/10/21 12:08 Pre-Assessment Diagnosis/Proposed Procedure Planned Operative Procedure(s): direct laryngoscopy with excision cyst Anesthesia History 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 When Was Last Pacemaker Check QUESTION #4 FULL TEXT: You/Your Family Experience fever (hyperthermia) with Anesthesia Last Oral Intake Last Oral intake: Last Oral Intake NPO since 06:30 07/10/24 07:38 Meds taken in AM with sips of Yes 07/10/24 07:38 water? Meds patient instructed to take am of surgery PONV PONV - automotive engineering teacher: PONV - automotive engineering teacher Female Yes 07/03/24 13:04 HX of Motion Sickness No 07/03/24 13:04 HX of N/V After Surgery No 07/03/24 13:04 Non-Smoker Yes 07/03/24 13:04 Duration of Surgery greater No 07/03/24 13:04 than 60 minutes Number of Risk Factors 2 07/03/24 13:04 PONV Score Moderate Risk 07/03/24 13:04 Height & Weight Height & Weight: Anesthesia: Height & Weight Height 5 ft 10 in 07/10/24 07:38 Weight: 89 kg 07/10/24 07:38 Body Mass Index (BMI) 28.1 07/10/24 07:38 Respiratory Assessment Respiratory Assessment - automotive engineering teacher: Respiratory Tract Infection Hx - automotive engineering teacher Hx Respiratory Tract Infection No 07/03/24 13:04 STOP Sleep Apnea STOP Sleep Apnea - automotive engineering teacher: STOP Sleep Apnea - automotive engineering teacher Hx Hypertension Yes: CONTROLLED WITH MED 07/03/24 13:04 Hx Sleep Apnea No 07/03/24 13:04 CPAP BIPAP Do you snore loudly (louder No 07/03/24 13:04 than talking or can be heard Do you often feel tired/ No 07/03/24 13:04 fatigued/ sleepy during daytime? Has anyone observed you stop No 07/03/24 13:04 breathing during sleep? STOP Results Negative 07/03/24 13:04 QUESTION #5 FULL TEXT : Do you snore loudly (louder than talking or can be heard through closed doors)? 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 Specify any problems Hx of Preganancy in last 3 N/A 07/03/24 13:04 Months Nurse Filling Out Transfusion NBUCHER 07/03/24 13:04 & Questions: Date: 07/03/24 07/03/24 13:04 Time: 13:06 07/03/24 13:04 Patient unable to answer at this time (ie. confused, unrespo /Reproduction History /Reproductive History - automotive engineering teacher: /Reproductive Hx- automotive engineering teacher Hx Now No 07/03/24 13:04 Gestational Age (in weeks): EDC: Hx Hx Para Hx Section SAB No 07/03/24 13:04 Active Medications Active Medications: Current Medications Generic Name Dose Route Start Last Admin Trade Name Freq PRN Reason Stop Dose Admin Lactated Ringer's 1,000 mls @ 15 mls/hr 07/10/24 07:30 07/10/24 07:54 IV 07/15/24 20:49 15 mls/hr .Q48H [facility] Administration Protocol PFS Medical History Wears glasses Post-menopausal Arthritis Heartburn Shortness of breath on exertion Leg cramps Non-smoker Hypertension History of echocardiogram History of stress test Cardiology follow-up encounter History of irregular heartbeat Right leg DVT Trochanteric bursitis of left hip Iliotibial band syndrome Unilateral primary osteoarthritis, left hip Essential hypertension Hypertension Premature atrial contractions Ascending aortic aneurysm RBBB (right bundle branch block) Pulmonary hypertension, secondary History of DVT (deep vein thrombosis) Pulmonary embolism Home Medications ?Medication ?Instructions ?Recorded ?Last Taken ?Type cholecalciferol (vitamin D3) 125 5,000 unit PO QDAY 11/01/17 Unknown History mcg (5,000 unit) capsule turmeric root extract 500 mg 500 mg PO DAILY 12/12/18 Unknown History capsule cetirizine 10 mg tablet (Zyrtec) 10 mg PO QDAY PRN allergy symptoms 02/26/21 Unknown History apixaban 5 mg tablet (Eliquis) 5 mg PO BID #180 tabs 03/08/24 07/03/24 Rx biotin 10,000 mcg capsule 10,000 mcg PO DAILY 03/21/24 Unknown History multivitamin (Daily Multi-Vitamin 1 tab PO QAM 05/11/24 Unknown History tablet) diltiazem HCl 120 mg 120 mg PO BID #180 caps 06/01/24 07/10/24 06:30 Rx capsule,extended release 24 hr (Cartia XT) Allergy/AdvReac Type Severity Reaction Status Date / Time No Known Allergies Allergy Verified 07/10/24 07:33 Family History Father CAD (coronary artery disease) Mother CAD (coronary artery disease) TIA (transient ischemic attack) Sister Hypertension Sister Hypertension Brother Hypertension Surgical History Hx of tonsillectomy Hx of left cataract extraction Hx of right cataract extraction Hx of colonoscopy History of right hip hemiarthroplasty History of left hip replacement Status post wrist surgery History of elbow surgery History of arthroplasty of right hip Social History Smoking Status: Never smoker alcohol intake: current alcohol intake frequency: holidays/special occasions only substance use type: does not use caffeine: Yes Type: carbonated beverages and coffee Number of servings: 2 Review of Systems (Anesthesia) ROS Narrative System reviewed and no additional complaints, except as documented.
--- NOTE | 2024-07-10 08:57 | PCM.DC.SUM ---
Providers Primary Care Physician: Bonnie Perze NP-C Reason For Visit: direct laryngoscopy with excision cyst Medications at Discharge Home Medications cholecalciferol (vitamin D3) 125 mcg (5,000 unit) capsule 5,000 unit PO QDAY 11/01/17 turmeric root extract 500 mg capsule 500 mg PO DAILY 12/12/18 cetirizine 10 mg tablet (Zyrtec) 10 mg PO QDAY PRN allergy symptoms 02/26/21 apixaban 5 mg tablet (Eliquis) 5 mg PO BID #180 tabs 03/08/24 biotin 10,000 mcg capsule 10,000 mcg PO DAILY 03/21/24 multivitamin (Daily Multi-Vitamin tablet) 1 tab PO QAM 05/11/24 diltiazem HCl 120 mg capsule,extended release 24 hr (Cartia XT) 120 mg PO BID #180 caps 06/01/24 Weight / BMI Weight Weight: 89 kg Body Mass Index (BMI) 28.1 D/C Instructions Discharge Diet: Soft diet DC O2, CPAP, BIPAP Needs Additional Home O2 Discharge instructions: No DC home with Oxygen: No Additional Instructions: Start antibiotic tonight Please Follow Up With: Ajith Samayoa MD When: 2 weeks Meaningful Use Info Meaningful Use Meaningful Use Diagnoses (Choose all that apply): None applicable Ischemic Stroke Statin Dosing Therapy Reference: STATIN DOSE THERAPY REFERENCE: * Patients > 75 years receive moderate or high dose statin therapy. * Patients 75 years or YOUNGER should receive HIGH intensity statin dose unless contraindicated. You will be required to document reason for non-treatment if statin daily dose does not meet guidelines. HIGH DOSE STATIN THERAPY DAILY Atorvastatin > than or = to 40 mg Rosuvastatin > than or = to 20 mg Amlodipine + Atorvastatin > than or = to 2.5/40 mg Ezetimibe + Simvastatin 10/80 mg Simvastatin 80mg Discharge Plan Admission Attending Provider: Ajith Samayoa Primary Care Provider: Bonnie Perez NP Instructions Print Language: Venezuelan Discharge Orders/Prescriptions Prescriptions: No Action cholecalciferol (vitamin D3) 5,000 unit capsule 5,000 unit PO QDAY cetirizine [Zyrtec] 10 mg tablet 10 mg PO QDAY PRN (Reason: allergy symptoms) turmeric root extract 500 mg capsule 500 mg PO DAILY diltiazem HCl [Cartia XT] 120 mg capsule,extended release 24hr 120 mg PO BID Qty: 180 3RF multivitamin [Daily Multi-Vitamin] Tablet 1 tab PO QAM biotin 10,000 mcg capsule 10,000 mcg PO DAILY Eliquis 5 mg tablet 5 mg PO BID Qty: 180 3RF Referrals / Follow Up: Bonnie Perez COMPOSING ROOM SUPERVISOR, COMPOSING ROOM SUPERVISOR-C [Primary Care Provider] - Disposition Disposition (needs filled in before D/C Order can be placed): Home, Self Care
--- NOTE | 2024-07-10 09:00 | LARBX_PTH ---
PATIENT: JOSE G DENNEY LOC: [facility] – [place] U#:[id number] AGE/SX: 74/F ROOM: RE07/10/[address]: Dr. Ajith Samayoa MD : 1950 BED: DIS: 07/10/2024 SPEC #: [id number] RECD: 07/10/24 10:55 STATUS: CRISTINO CORDERO #: [id number] JE: 07/10/24 09:[address]: Ajith Samayoa DEPT: SURGICAL PATHOLOGY RECD BY: Lazaro Smith ENTERED: 07/10/24 11:30 SP TYPE: LARYNX BX OTHR DR: Bonnie Perez, MINE CAR REPAIRER-Ana Tissues: Laryngeal cavity Procedures: Surgery Specimen Level IV HEADER OPERATION: Direct laryngoscopy with excision cyst PRE-OP DIAGNOSIS: Hoarseness, benign neoplasm of larynx TISSUE SUBMITTED: Laryngeal mass MICROSCOPIC DIAGNOSIS Laryngeal mass, biopsy: Polypoid fragment of benign lymphoid tissue. Bacterial organisms consistent with actinomyces. No evidence of malignancy. See comment. AM. 07/11/2024 COMMENT Immunohistochemistry ([id number]) supports the above diagnosis. MICROSCOPIC DESCRIPTION Slides are reviewed. GROSS DESCRIPTION Received in fixative is one container labeled with the patient's name and designated Laryngeal mass. The specimen consists of a light hill polypoid soft tissue measuring 1.1 x 1.0 x 0.8cm. The specimen is bisected and totally submitted in one cassette. AM. 07/10/2024 TC:5 CPT:35920
[2024-07-10] MEDS: Epinephrine (1 mg/ml) 1 MG/ML VIAL ×2 (09:09)
--- NOTE | 2024-07-10 09:39 | PCM.OPRPT ---
Operative Report (Standard) Operative Information Surgery/Procedure Performed: Microdirect Laryngoscopy with excision of laryngeal mass Surgeon: Ajith Samayoa Date of Procedure: 07/10/24 Procedure Start Time: :09 Procedure Stop Time: 09:38 Pre-Operative Diagnosis: laryngeal mass Post-Operative Diagnosis: same Select all DRAINS/GRAFTS/IMPLANTS that apply: None Type of Anesthesia: General Estimated Blood Loss: 3 cc Specimen collected: Yes Description of specimen(s) removed: laryngeal mass Description of surgery: The patient was taken to the operating on 07/10/2024. She was placed in the supine position on the operating room table. She was given sufficient general endotracheal anesthesia. The table was turned 90 degrees in a clockwise fashion. The patient was draped sterilely. A gum guard was placed on the upper dentition. A Dedo laryngoscope was inserted in the patient's mouth and moved into the oropharynx. The endolarynx was exposed. She had a left AE fold mass. Once this was fully exposed she was placed in suspension using the [employer] suspension carter. This was placed on the [place] stand. The operating microscope was then brought into use. The mass was grasped with cup forceps. I then excised the mucosa at the AE fold with scissors. The mass was then delivered intact and sent for permanent section. Hemostasis was achieved with adrenaline pledgets on the incision. Once hemostasis was achieved, all instrumentation was removed. The patient was then awoken and brought to the recovery room in stable condition. Blood loss 3 cc, replacement none. Sponge, needle, and instrument count were correct at the end of the procedure. Surgical Findings: laryngeal cyst Construction Specialist director medical surgical: No Complications Complications: No
--- NOTE | 2024-07-10 09:52 | PCM.POST.ANE ---
Anesthesia: Postop Eval I Current Vital Signs Temperature: 97.2 F Pulse Rate: 72 Blood Pressure: 133/78 Respiratory Rate: 18 Pulse Ox: 94 Assessment Airway patent: Yes Spontaneous unlabored respirations: Yes nausea: No Vomiting: No Anesthesia Complication: No Fluid Hydration Crystalloid volume administer (ml): 900 Total IV fluid infused: 900 Progress Note Anesthesia document: Postop Eval 1 completed: Yes
[2024-07-10] MEDS: Acetaminophen 325 MG Tablet 650 MG PO (10:39)
--- NOTE | 2024-07-10 10:50 | POSTOPAN2_ITS ---
Anesthesia Postop Eval I Sum Postop Eval Completion status Anesthesia document: Postop Eval 1 completed: Yes Anesthesia Postop Eval I Summary Anesthesia Postop Eval I Summary: Anesthesia Postop Eval I: Assessment Summary Airway patent Yes 07/10/24 09:52 [email or web address] [email or web address] Spontaneous unlabored Yes 07/10/24 09:52 BONE [email or web address] respirations Mental status nausea No 07/10/24 09:52 BONE PULLER.CSIR Vomiting No 07/10/24 09:52 BONE [email or web address] Anesthesia Postop Eval I: Fluid Summary Crystalloid volume administer 900 07/10/24 09:52 BONE [email or web address].CSIR (ml) Colloids volume administered ( ml) Blood Product volume administered (ml) Total IV fluid infused 900 07/10/24 09:52 BONE [email or web address] Anesthesia Postop Eval I: Summary Notes Anesthesia Complication No 07/10/24 09:52 BONE [email or web address].[email or web address] Anesthesia Complication Comment: Post-operative progress note Anesthesia: Postop Eval II Evaluation Mental status: Awake Pain Level: 0 nausea: No Vomiting: No
--- NOTE | 2024-07-10 10:50 | PCM.POSTANE2 ---
Anesthesia Postop Eval I Sum Postop Eval Completion status Anesthesia document: Postop Eval 1 completed: Yes Anesthesia Postop Eval I Summary Anesthesia Postop Eval I Summary: Anesthesia Postop Eval I: Assessment Summary Airway patent Yes 07/10/24 09:52 BUILDING [email or web address].[email or web address] Spontaneous unlabored Yes 07/10/24 09:52 BUILDING ENGINEER.CSIR respirations Mental status nausea No 07/10/24 09:52 BUILDING ENGINEER.CSIR Vomiting No 07/10/24 09:52 BUILDING ENGINEER.CSIR Anesthesia Postop Eval I: Fluid Summary Crystalloid volume administer 900 07/10/24 09:52 BUILDING [email or web address].CSIR (ml) Colloids volume administered ( ml) Blood Product volume administered (ml) Total IV fluid infused 900 07/10/24 09:52 BUILDING [email or web address].CSIR Anesthesia Postop Eval I: Summary Notes Anesthesia Complication No 07/10/24 09:52 BUILDING [email or web address].CSIR Anesthesia Complication Comment: Post-operative progress note Anesthesia: Postop Eval II Evaluation Mental status: Awake Pain Level: 0 nausea: No Vomiting: No
== END 2024-07-10 11:03 | disposition home or self-care (01) ==
LOC: SDC 07:18 → AC 07:20
PROVIDERS: PCP Nurse Practitioner; Referring Provider Otolaryngology; Visit Provider Otolaryngology
PROC: 0CJS8ZZ Inspection of Larynx, Via Natural or Artificial Opening Endoscopic (ICD-10-PCS; CPT 31575; principal; 2024-07-10 08:45)
DX: D14.1 Benign neoplasm of larynx (principal); I27.20 Pulmonary hypertension, unspecified; R13.10 Dysphagia, unspecified; I71.20 Thoracic aortic aneurysm, without rupture, unspecified; I10 Essential (primary) hypertension; Z86.718 Personal history of other venous thrombosis and embolism; Z96.643 Presence of artificial hip joint, bilateral; R49.0 Dysphonia
CPT/HCPCS: 31526; 00320; 88305; 88341; 88342; A4216; J2405